=== PATIENT | male | born 1940 | race Caucasian/White ===

== ENCOUNTER 2020-05-24 00:40 | Emergency (ER) | payer MEDICARE, OTHER ==
--- NOTE | 2020-05-24 01:02 | EDM.PDOC ---
ED HPI GENERAL MEDICAL PROBLEM - General Chief Complaint: Lower Extremity Injury/Pain Stated Complaint: Left Hip Pain Time Seen by Provider: 05/24/20 00:40 Source of Information: Reports: Patient History Limitations: Reports: No Limitations - History of Present Illness INITIAL COMMENTS - FREE TEXT/NARRATIVE: Patient comes in via EMS with complaints of left hip pain. Patient was ambulating to turn down the thermostat and tripped over the carpet and fell on his left side. He states he landed on his left hip he does not recall hearing a popping patient but does state that he was unable to bear weight immediately after his fall. [facility]. He was able to lift himself up to a chair before calling the ambulance. Alayna granados denies any CMS concerns but does state that he does not have good range of motion with trying to lift his leg up. He is also unable to bear weight without significant amount of pain and discomfort. Denies any chest pain, shortness of breath, loss of consciousness, dizziness, lightheadedness, blurred vision, GI upset, loss of bowel or bladder, or peripheral edema. Onset: Sudden Quality: Reports: Throbbing Severity: Mild Improves with: Reports: Immobilization Worsens with: Reports: Movement Context: Reports: Activity Associated Symptoms: Reports: No Other Symptoms Left Outer Hip Pain Score (Numeric/FACES): 2 - Related Data Allergies Allergy/AdvReac Type Severity Reaction Status Date / Time IV Contrast Allergy Severe Cannot Uncoded 05/24/20 01:08 Remember Home Meds: Home Meds Dextrose [Glucose] 1 tab PO ASDIRECTED PRN 10/29/15 [History] Ergocalciferol (Vitamin D2) [Vitamin D2] 1 cap PO WEEKLY 10/29/15 [History] Finasteride 5 mg PO DAILY 10/29/15 [History] Furosemide [Lasix] 40 mg PO DAILY 10/29/15 [History] Losartan [Cozaar] 100 mg PO BEDTIME 10/29/15 [History] Terazosin [Hytrin] 10 mg PO DAILY 10/29/15 [History] amLODIPine Besylate [Amlodipine Besylate] 10 mg PO DAILY 10/29/15 [History] atenoloL [Atenolol] 50 mg PO DAILY 10/29/15 [History] atorvaSTATin Calcium [Atorvastatin Calcium] 20 tab PO BEDTIME 10/29/15 [History] glipiZIDE [Glucotrol XL] 10 mg PO DAILY 10/29/15 [History] Past Medical History Cardiovascular History: Reports: High Cholesterol, Hypertension, [place] Genitourinary History: Reports: Prostate Disorder Musculoskeletal History: Reports: Arthritis Other Musculoskeletal History: Partial knee replacement L. Endocrine/Metabolic History: Reports: Diabetes, Type II Dermatologic History: Reports: Cellulitis - Past Surgical History Musculoskeletal Surgical History: Reports: Knee Replacement, Other (See Below) Review of Systems - Review of Systems Review Of Systems: Comprehensive ROS is negative, except as noted in HPI. Constitutional: Reports: No Symptoms Eyes: Reports: No Symptoms Ears: Reports: No Symptoms Nose: Reports: No Symptoms Mouth/Throat: Reports: No Symptoms Respiratory: Reports: No Symptoms Cardiovascular: Reports: No Symptoms GI/Abdominal: Reports: No Symptoms Genitourinary: Reports: No Symptoms Skin: Reports: No Symptoms Neurological: Reports: No Symptoms Psychiatric: Reports: No Symptoms ED EXAM, GENERAL - Physical Exam Exam: See Below Exam Limited By: No Limitations General Appearance: Alert, WD/WN, No Apparent Distress Eye Exam: Bilateral Eye: EOMI, PERRL Course - Vital Signs Last Recorded V/S: Last Vital Signs Temp 36.5 C 05/24/20 01:21 Pulse 94 05/24/20 01:21 Resp 14 05/24/20 01:21 BP 100/48 L 05/24/20 01:21 Pulse Ox 97 05/24/20 01:21 - Orders/Labs/Meds Orders: Active Orders 24 hr Category Date Time Status Hip Min 1V w Pelvis Lt [CR] Stat Exams 05/24/20 00:43 Taken Labs: Laboratory Tests 05/24/20 05/24/20 05/24/20 Range/Units 01:06 01:06 01:06 WBC 8.5 (4.0-10.0) x10^3/uL RBC 3.38 L (4.5-6.0) x10^6/uL Hgb 10.7 L (14.0-18.0) g/dL Hct 33.2 L (40.0-52.0) % MCV 98.2 H D (78.0-93.0) fL MCH 31.7 (26.0-32.0) pg MCHC 32.2 (32.0-36.0) g/dL RDW Coeff of Lilian 14.3 (10.0-15.0) % Plt Count 108 L (130-400) x10^3/uL Add Manual Diff Yes Neutrophils % (Manual) 68 (50-80) % Lymphocytes % (Manual) 19 L (25-50) % Monocytes % (Manual) 10 (2-11) % Eosinophils % (Manual) 3 (0-4) % Platelet Estimate Decreased L Giant Platelets Occasional H Anisocytosis 2+ moderate H Ovalocytes 1+ slight H PT 10.3 (9.5-12.3) SEC INR 0.9 L (2.0-3.5) Sodium 140 (136-145) mmol/L Potassium 4.9 (3.5-5.1) mmol/L Chloride 99 (98-107) mmol/L Carbon Dioxide 32 (21-32) mmol/L Anion Gap 13.9 (10-20) mmol/L BUN 36 H (7-18) mg/dL Creatinine 6.9 H* D (0.70-1.30) mg/dL Est Cr Clr Drug Dosing 9.53 mL/min Estimated GFR (MDRD) 8 Glucose 198 H (74-106) mg/dL Calcium 9.3 (8.5-10.1) mg/dL Corrected Calcium 9.46 (8.5-10.1) mg/dL Total Bilirubin 0.5 (0.2-1.0) mg/dL AST 26 (15-37) U/L ALT 29 (16-63) U/L Alkaline Phosphatase 102 (46-116) U/L Total Protein 6.9 (6.4-8.2) g/dL Albumin 3.8 (3.4-5.0) g/dL Globulin 3.1 Albumin/Globulin Ratio 1.23 Departure - Departure Time of Disposition: 03:00 Disposition: DC/Tfer to Acute Hospital 02 Condition: Good Clinical Impression: Fracture of neck of femur, hip - Discharge Information *PRESCRIPTION DRUG MONITORING PROGRAM REVIEWED*: Not Applicable *COPY OF PRESCRIPTION DRUG MONITORING REPORT IN PATIENT SHANITA: Not Applicable Referrals: PCP,Not In Area [Primary Care Provider] - Forms: ED Department Discharge, Interfacility Transfer EMTALA Sepsis Event Note (ED) - Focused Exam Vital Signs: Vital Signs Temp Pulse Resp BP Pulse Ox 05/24/20 01:21 36.5 C 94 14 100/48 L 97 - My Orders Last 24 Hours: My Active Orders 05/24/20 00:43 Hip Min 1V w Pelvis Lt [CR] Stat - Assessment/Plan Last 24 Hours: My Active Orders 05/24/20 00:43 Hip Min 1V w Pelvis Lt [CR] Stat Plan: 1. X-ray completed in the emergency department results reviewed with the patient 2. Ice Applied to the affected limb 3. Medication offered to the patient- pt denied needing any at this time 4. Labs completed in ER 5. Consultation completed with [facility]; 2:35 called back and stated they do not have the capabilities to fix a hip fracture. Pt request transfer to [place]. Called at 2:40-2:50 Pt will be transferred via S for further level of care and surgical evaluation 6. Education regarding splinting, activity, [id number] medications, and follow-up care provided. 7. All questions and concerns addressed with the patient prior to discharge
[2020-05-24 01:38] LABS: ANION GAP 13.9 mmol/L (10-20)
[2020-05-24] MEDS ORDERED: fentaNYL 100 MCG/2 ML SDV IVPUSH ONE (02:58)
[2020-05-24 02:59] VITALS: BP 125/55; PULSE 87
--- NOTE | 2020-05-24 09:18 | CR ---
[id number] RAD/RAD Pelvis 1V W 2V Left Hip Exam: RAD Pelvis 1V W 2V Left Hip Clinical Data: TRAUMA COMPARISON: NO PREVIOUS SIMILAR EXAM IS AVAILABLE FINDINGS: A subcapital fracture of the left hip is seen IMPRESSION: LEFT HIP FRACTURE Vasile Nair MD 05/24/20 [id number] Thank you for allowing us to participate in the care of your patient.
== END 2020-05-24 03:30 | disposition short-term general hospital (02) ==
LOC: VM.ED 00:40
DX: S72.012A Unspecified intracapsular fracture of left femur, initial encounter for closed fracture (principal); E78.00 Pure hypercholesterolemia, unspecified; I10 Essential (primary) hypertension; I25.2 Old myocardial infarction; E11.9 Type 2 diabetes mellitus without complications; Z79.84 Long term (current) use of oral hypoglycemic drugs; Z91.041 Radiographic dye allergy status; Z79.899 Other long term (current) drug therapy; W01.0XXA Fall on same level from slipping, tripping and stumbling without subsequent striking against object, initial encounter
CPT/HCPCS: 36415; 73501; 80053; 85025; 85610; 96374; 99284; 99285; J3010

== ENCOUNTER 2021-11-03 17:28 | Emergency (ER) | payer OTHER, MEDICARE ==
[2021-11-03 18:11] VITALS: BP 109/59; PULSE 102
[2021-11-03 18:43] LABS: ANION GAP 19.5 mmol/L (5-15)
[2021-11-03] MEDS ORDERED: Doxycycline 100 MG Cap PO ONE (19:05)
== END 2021-11-03 19:45 | disposition home or self-care (01) ==
LOC: VM.ED 17:28
DX: R41.0 Disorientation, unspecified (principal); I12.0 Hypertensive chronic kidney disease with stage 5 chronic kidney disease or end stage renal disease; N18.6 End stage renal disease; R05.9 Cough, unspecified; E78.00 Pure hypercholesterolemia, unspecified; I25.2 Old myocardial infarction; E11.9 Type 2 diabetes mellitus without complications; Z88.8 Allergy status to other drugs, medicaments and biological substances; Z91.041 Radiographic dye allergy status; Z79.82 Long term (current) use of aspirin; Z79.899 Other long term (current) drug therapy; Z87.891 Personal history of nicotine dependence; Z20.822 Contact with and (suspected) exposure to COVID-19
CPT/HCPCS: 36415; 51702; 70450; 71046; 80053; 82140; 84484; 85025; 86140; 93005; 99285-25; A9270-GY; U0002

== ENCOUNTER 2022-03-15 14:30 | Emergency (ER) | payer MEDICARE, OTHER ==
[2022-03-15] MEDS: Ondansetron 4 MG/2 ML SDV IVPUSH ONE (15:08)
[2022-03-15 15:21] VITALS: BP 111/58; PULSE 90
[2022-03-15 15:31] LABS: ANION GAP 18.5 mmol/L (5-15)
[2022-03-15] MEDS: Heparin Sodium 5,000 Units/ML Vial IVPUSH ONE (17:08)
[2022-03-15] MEDS: Heparin Sodium/0.45% NaCl 25,000 UNITS/500 ML BAG IV SCH (17:08)
== END 2022-03-15 18:54 | disposition short-term general hospital (02) ==
LOC: VM.ED 14:30
DX: I47.2 Ventricular tachycardia (principal); R55 Syncope and collapse
CPT/HCPCS: 36415; 80053; 82550; 83605; 83880; 84484; 85025; 85610; 85730; 93005; 93010; 96365; 96366; 96375; 99284; 99285-25; J1644; J2405

== ENCOUNTER 2022-03-29 01:46 | Emergency (ER) | payer MEDICARE, OTHER ==
[2022-03-29] MEDS ORDERED: Sodium Chloride 0.9% 10 ML Syringe FLUSH PRN (02:00)
[2022-03-29 02:32] LABS: CHLORIDE,CL 99 mmol/L (98-107); PTT,PARTIAL THROMBOPLSTIN TIME 24.3 SEC (20.5-30.9); SODIUM,NA 140 mmol/L (136-145)
[2022-03-29 02:36] LABS: ANION GAP 20.3 mmol/L (5-15)
[2022-03-29] MEDS: Sodium Bicarbonate 8.4% 50 MEQ/50 ML Syringe IVPUSH ONE (03:02)
[2022-03-29] MEDS: Calcium Chloride 10% 1 GM/10 ML Syringe IVPUSH ONE (03:03)
[2022-03-29] MEDS ORDERED: Glucagon,Human Recombinant 1 MG Vial IM PRN (03:05)
[2022-03-29] MEDS ORDERED: 50% Dextrose in Water 50 ML Syringe IV PRN (03:06)
[2022-03-29] MEDS: Ondansetron 4 MG/2 ML SDV IVPUSH ONE (03:16)
[2022-03-29] MEDS: 50% Dextrose in Water 50 ML Syringe IVPUSH PRN (03:23)
[2022-03-29] MEDS: Insulin Regular, Human 100 Units/ML 3 ML Vial IVPUSH ONE (03:24)
== END 2022-03-29 03:40 | disposition short-term general hospital (02) ==
LOC: VM.ED 01:46
DX: I62.00 Nontraumatic subdural hemorrhage, unspecified (principal); E87.5 Hyperkalemia; E78.00 Pure hypercholesterolemia, unspecified; I25.2 Old myocardial infarction; I10 Essential (primary) hypertension; Z79.899 Other long term (current) drug therapy; Z88.8 Allergy status to other drugs, medicaments and biological substances; Z91.018 Allergy to other foods; Z91.041 Radiographic dye allergy status
CPT/HCPCS: 70450; 71045; 80053; 80307; 82947; 83735; 84100; 84484; 85025; 85610; 85730; 86140; 93005; 93010; 96374; 96375; 99284; 99285; J2405